=== PATIENT | male | born 2000 | race Hispanic/Latino ===

== ENCOUNTER 2023-08-06 21:30 | Emergency (ER) | payer OTHER ==
[~2023-08-06] VITALS: Ht 190.5 cm; Wt 131.5 kg
[2023-08-06] MEDS ORDERED: LIDOCAINE HCL 1% 20 ML VIAL ONE (21:42)
[2023-08-06 22:00] VITALS: BP 132/76; PULSE 79; RESP 18; O2SAT 98
== END 2023-08-06 22:21 | disposition home or self-care (01) ==
LOC: EDH 21:30
DX: S61.012A Laceration without foreign body of left thumb without damage to nail, initial encounter (principal); F41.9 Anxiety disorder, unspecified; W45.8XXA Other foreign body or object entering through skin, initial encounter; Y93.89 Activity, other specified; Y92.89 Other specified places as the place of occurrence of the external cause; Y99.8 Other external cause status
CPT/HCPCS: 12001; 73120